=== PATIENT | female | born 1990 | race Two or more races ===

== ENCOUNTER 2020-06-23 10:35 | Outpatient (CLI) | payer OTHER | END 2020-06-23 10:36 | disposition home or self-care (01) | LOC: PPH VACUNA 10:35 | DX: Z23 Encounter for immunization (principal) ==

== ENCOUNTER → 2020-07-14 23:59 | Outpatient (CLI) | payer OTHER | END | disposition home or self-care (01) | LOC: PPH VACUNA 23:59 | DX: Z23 Encounter for immunization (principal) ==

== ENCOUNTER → 2021-04-25 | Emergency (ER) | payer OTHER ==
[~2021-04-25] VITALS: Ht 162.6 cm; Wt 90.7 kg
[~2021-04-25] MED LIST: AMOX-CLAV 875-1 EACH PO; IBU800 MG PO
== END | disposition home or self-care (01) ==
LOC: ER 00:49
DX: K08.89 Other specified disorders of teeth and supporting structures (principal)

== ENCOUNTER 2022-02-01 21:50 | Emergency (ER) | payer OTHER ==
[~2022-02-01] VITALS: Ht 162.6 cm; Wt 76.2 kg
[2022-02-01] MEDS ORDERED: ADIPEX-P37.5 MG PO (22:06)
[2022-02-02] MEDS ORDERED: MONISTAT 315 GM VAG (01:13)
[2022-02-02] MEDS ORDERED: BACTRIM DS TAB1 EACH PO (01:13)
[2022-02-02] MEDS ORDERED: URETRON D-S TAB1 TAB PO (01:16)
== END 2022-02-02 01:38 ==
LOC: ER 21:50
DX: R35.0 Frequency of micturition (principal)

== ENCOUNTER → 2024-08-11 | Emergency (ER) | payer OTHER ==
[~2024-08-11] MED LIST changes: +ADIPEX-P37.5 MG PO; +BACTRIM DS TAB1 EACH PO; +MONISTAT 315 GM VAG; +URETRON D-S TAB1 TAB PO
== END | disposition left against medical advice (07) ==
LOC: ER 22:17
DX: Z53.21 Procedure and treatment not carried out due to patient leaving prior to being seen by health care provider (principal)

== ENCOUNTER → 2024-08-21 | Emergency (ER) | payer OTHER ==
[~2024-08-21] VITALS: Ht 162.6 cm; Wt 65.8 kg
[~2024-08-21] MED LIST changes: +0.9 % SODIUM CHLORIDE 1,000 ML IV SCH; +CEFTRIAXONE SODIUM 2,000 MG VIAL IV ONE; +CEFTRIAXONE SODIUM 2,000 MG VIAL ONE; +KETOROLAC TROMETHAMINE 30 MG VIAL IV STA; +KETOROLAC TROMETHAMINE 30 MG VIAL ONE; +MORPHINE SULFATE 4 MG/ML VIAL IV STA; +PREP
[2024-08-21 21:55] LABS: BASO % 0.4 % (0.1-1.2); EOS % 0.8 % (0.7-7.0); HEMATOCRIT 32.4 % (34.1-44.9); HEMOGLOBIN 11.1 g/dL (11.2-15.7); LYMPH # 1.46 (1.18-3.74); LYMPH % 12.2 % (19.3-53.1); MEAN CORPUSCULAR HEMOGLOBIN 32.3 pg (25.6-32.2); MONO # 0.87 (0.24-0.82); MONO % 7.3 % (4.7-12.5); NEUT # 9.38 (1.56-6.13); NEUT % 78.5 % (34.0-71.1); PLATELET COUNT 310 K/uL (163-369); RED BLOOD COUNT 3.44 M/uL (3.93-5.22); RED CELL DISTRIBUTION WIDTH 12.9 % (11.6-14.4)
[2024-08-21 22:16] LABS: PARTIAL THROMBOPLASTIN TIME 28.2 SECONDS (22.0-34.0); PROTHROMBIN TIME 10.9 SECONDS (9.0-11.5)
[2024-08-21 22:26] LABS: ALBUMIN 2.6 gm/dL (3.4-5.0); BILIRUBIN TOTAL 0.35 mg/dL (0.3-1.2); CALCIUM 9.2 mg/dL (8.5-10.1); CREATININE SERUM 0.82 mg/dL (0.55-1.02); GFR 80.79; GLOBULINA 4.3 G/DL (2.4-3.5); POTASSIUM 3.48 mEq/L (3.5-5.1); TOTAL PROTEIN 6.9 gm/dL (6.4-8.2)
[2024-08-21 22:39] LABS: PH,URINE 6.5 (5.0-8.0); URINE APPEARANCE Cloudy; URINE BILIRRUBIN Negative (NEGATIVE); URINE BLOOD Negative; URINE COLOR Yellow; URINE GLUCOSE Negative (NEGATIVE); URINE KETONE Trace (NEGATIVE); URINE LEUKOCYTE Small; URINE NITRATE Negative
[2024-08-21 22:43] LABS: URINE EPITHELIAL CELLS 91.8 uL (0.0-38.8); URINE RBC 13.8 uL (0.0-20.8)
[2024-08-21 22:54] LABS: URINE CAST 0.29 uL (0.0-1.40); URINE PROTEIN 100 (NEGATIVE)
[2024-08-21 23:01] LABS: TYPE CELLS SQUAMOUS
[2024-08-22 05:14] LABS: BASO % 0.4 % (0.1-1.2); EOS # 0.14 (0.04-0.54); EOS % 1.5 % (0.7-7.0); HEMATOCRIT 31.6 % (34.1-44.9); HEMOGLOBIN 10.5 g/dL (11.2-15.7); LYMPH # 1.53 (1.18-3.74); LYMPH % 16.9 % (19.3-53.1); MEAN CORPUSCULAR HEMOGLOBIN 31.2 pg (25.6-32.2); MONO # 0.77 (0.24-0.82); MONO % 8.5 % (4.7-12.5); NEUT # 6.49 (1.56-6.13); NEUT % 71.7 % (34.0-71.1); PLATELET COUNT 297 K/uL (163-369); RED BLOOD COUNT 3.37 M/uL (3.93-5.22)
== END | disposition home or self-care (01) ==
LOC: ER 20:15
PROVIDERS: General Practice
DX: R10.2 Pelvic and perineal pain (principal)
CPT/HCPCS: 36415; 74177; 76830; Q9965

== ENCOUNTER 2024-12-29 19:39 | Emergency (ER) | payer OTHER ==
[~2024-12-29] VITALS: Ht 162.6 cm; Wt 64.4 kg
[~2024-12-29 19:39] MED LIST changes: -0.9 % SODIUM CHLORIDE 1,000 ML IV SCH; -CEFTRIAXONE SODIUM 2,000 MG VIAL IV ONE; -CEFTRIAXONE SODIUM 2,000 MG VIAL ONE; -KETOROLAC TROMETHAMINE 30 MG VIAL IV STA; -KETOROLAC TROMETHAMINE 30 MG VIAL ONE; -MORPHINE SULFATE 4 MG/ML VIAL IV STA
[2024-12-29] MEDS ORDERED: HYOSCYAMINE SULFATE 0.125 MG TAB.SUBL SL ONE (20:45)
[2024-12-29] MEDS ORDERED: FAMOTIDINE/PF 20 MG/2 ML VIAL IV ONE (20:45)
[2024-12-29] MEDS ORDERED: 0.9 % SODIUM CHLORIDE 1,000 ML IV ONE (20:45)
[2024-12-29] MEDS ORDERED: LACTOBACILLUS ACIDOPHILUS 1 CAP CAP PO ONE (20:45)
[2024-12-29 21:49] LABS: BASO % 0.5 % (0.1-1.2); EOS # 0.15 (0.04-0.54); EOS % 2.4 % (0.7-7.0); LYMPH # 2.01 (1.18-3.74); LYMPH % 32.3 % (19.3-53.1); MEAN PLATELET VOLUME 8.60 fl (9.4-12.4); MONO # 0.28 (0.24-0.82); MONO % 4.5 % (4.7-12.5); NEUT # 3.74 (1.56-6.13); NEUT % 60.0 % (34.0-71.1); RED CELL DISTRIBUTION WIDTH 11.6 % (11.6-14.4)
[2024-12-29 22:10] LABS: COVID-19 AG NEGATIVE (NEGATIVE)
[2024-12-29 22:34] LABS: ALT/SGPT 19.0 U/L (12-78); AST/SGOT 11.0 U/L (15-37); BILIRUBIN TOTAL 0.32 mg/dL (0.3-1.2); BUN CREA RATIO 11.0 (7.0-25.0); CREATININE SERUM 0.83 mg/dL (0.55-1.02); GFR 79.17; GLOBULINA 4.1 G/DL (2.4-3.5); GLUCOSE FASTING 67.0 mg/dL (65-100); OSMOLALITY SERUM 278.0 MOSM/KG (275-295)
[2024-12-29] MEDS ORDERED: LOPERAMIDE HCL 2 MG CAPSULE PO ONE (23:00)
[2024-12-30] MEDS ORDERED: METOCLOPRAMIDE HCL 5 MG/ML VIAL IV ONE (00:30)
[2024-12-30] MEDS ORDERED: PROBIOTIC1 EAC2 PO (00:50)
[2024-12-30] MEDS ORDERED: PROTONIX40 MG PO (00:50)
[2024-12-30] MEDS ORDERED: METOCLOPRAMIDE10 MG PO (00:50)
== END 2024-12-30 01:51 | disposition home or self-care (01) ==
LOC: ER 19:40
PROVIDERS: General Practice
DX: K52.89 Other specified noninfective gastroenteritis and colitis (principal); Z20.822 Contact with and (suspected) exposure to COVID-19